=== PATIENT | female | born 1960 ===

== ENCOUNTER 2022-06-27 08:00 | Inpatient (IN) | payer OTHER ==
[2022-06-27] MEDS ORDERED: TOPROL XL50 M1 PO (09:17)
[2022-06-27] MEDS ORDERED: NORVASC5 MG PO (09:18)
[2022-06-27] MEDS ORDERED: METFORMIN HCL500 M3 PO (09:18)
[2022-06-27] MEDS ORDERED: LIPITOR40 MG PO (09:18)
[2022-06-27] MEDS ORDERED: LOSARTAN-HCTZ1 EAC1 PO (09:18)
[2022-06-27] MEDS ORDERED: CLARITIN10 M1 PO (09:19)
[2022-06-27] MEDS ORDERED: PLAVIX75 MG PO (09:19)
[2022-06-27] MEDS ORDERED: GABAPENTIN300 M2 PO (09:19)
[2022-06-27] MEDS ORDERED: VENOFER200 MG/10 IV (09:20)
[2022-06-27] MEDS ORDERED: VITAMIN C500 M6 PO (09:21)
[2022-07-03] MEDS ORDERED: METAXALONE800 MG (08:09)
[2022-07-03] MEDS ORDERED: AZELASTINE137 MCG/0. (08:09)
== END 2022-07-05 13:27 | disposition home or self-care (01) | DRG 470 ==
LOC: O/R 07-03 05:35 → SURG 07-03 07:00
PROVIDERS: ADMIT Orthopaedic Surgery; ATTEND Orthopaedic Surgery
PROC: 0SRC0J9 Replacement of Right Knee Joint with Synthetic Substitute, Cemented, Open Approach (ICD-10-PCS; principal; 2022-07-03 07:00)
DX: M17.11 Unilateral primary osteoarthritis, right knee (principal); D62 Acute posthemorrhagic anemia; M85.661 Other cyst of bone, right lower leg; I11.9 Hypertensive heart disease without heart failure; E11.9 Type 2 diabetes mellitus without complications; Z96.651 Presence of right artificial knee joint; Z20.822 Contact with and (suspected) exposure to COVID-19